=== PATIENT | female | born 1950 | race Hispanic/Latino ===

== ENCOUNTER 2017-12-01 08:08 | Day surgery (SDC) | payer OTHER ==
[~2017-12-01] VITALS: Ht 157.5 cm; Wt 76.6 kg
[~2017-12-01 08:08] MED LIST: GEMF600T3 PO; SODIUM CHLORIDE 0.9% 1000ML 1,000 ML IV ONE
[2017-12-01 09:09] VITALS: BP 182/74
[2017-12-01] MEDS ORDERED: MEPERIDINE-PF 50 MG/ML SYG ONE ×2 (11:22)
== END 2017-12-01 12:20 ==
LOC: DAH 08:08 → ENDO 08:08
PROVIDERS: ATTEND Internal Medicine Gastroenterology
DX: Z12.11 Encounter for screening for malignant neoplasm of colon (principal); E78.5 Hyperlipidemia, unspecified; Z82.49 Family history of ischemic heart disease and other diseases of the circulatory system
CPT/HCPCS: 99156; G0105; A4606; J2175; J7030